=== PATIENT | male | born 1935 | race Caucasian/White ===

== ENCOUNTER 2021-07-13 13:49 | Emergency (ER) | payer OTHER, MEDICARE ==
[2021-07-13] MEDS ORDERED: Sodium Chloride 0.9% 10 ML Syringe FLUSH PRN (14:28)
--- NOTE | 2021-07-13 14:38 | EDM.PDOC ---
ED HPI GENERAL MEDICAL PROBLEM - General Chief Complaint: General Stated Complaint: MEDICAL [facility] Time Seen by Provider: 07/13/21 14:20 Source of Information: Reports: Patient, Old Records, RN History Limitations: Reports: No Limitations - History of Present Illness INITIAL COMMENTS - FREE TEXT/NARRATIVE: 85 yo male [place] patient arrives via EMS from his home where he lives with his for dark, diarrheal stools for about a week. He has not been seen before today. He called the [place] and was told to come to the ER. His does drive. He is on Eliquis. No nausea or fever. Is dizzy and light-headed and SOB with exertion. Hgb at [place] on 06/16/21 was 13.3 Onset: Gradual Onset Date: 07/06/21 Duration: Week(s): (1), Improving Location: Reports: Abdomen Quality: Reports: Other (no marked abdominal pain) Severity: Severe (severity of diarrhea at its worst) Improves with: Reports: Other (time, getting better today) Worsens with: Reports: Other (unknown) Context: Reports: Other (See HPI) Associated Symptoms: Reports: Shortness of Breath ([facility] only). 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 - Related Data Allergies Allergy/AdvReac Type Severity Reaction Status Date / Time No Known Allergies Allergy Verified 07/13/21 14:10 Home Meds: Home Meds Acetaminophen [Tylenol] 325 mg PO Q6HR PRN 07/13/21 [History] Apixaban [Eliquis] 2.5 mg PO BID 07/13/21 [History] Finasteride [Proscar] 5 mg PO DAILY 07/13/21 [History] Furosemide 20 mg PO DAILY 07/13/21 [History] Melatonin 10 mg PO BEDTIME 07/13/21 [History] Metoprolol Succinate [Toprol XL] 25 mg PO BID 07/13/21 [History] Mirtazapine [Remeron] 7.5 mg PO BEDTIME 07/13/21 [History] Prazosin HCl [Prazosin] 5 mg PO BEDTIME 07/13/21 [History] Sertraline HCl [Zoloft] 150 mg PO DAILY 07/13/21 [History] Tamsulosin HCl [Flomax] 0.4 mg PO DAILY 07/13/21 [History] atorvaSTATin Calcium [Atorvastatin Calcium] 10 mg PO BEDTIME 07/13/21 [History] buPROPion HCL [Wellbutrin Xl] 450 mg PO TID 07/13/21 [History] calcitrioL [Calcitriol] 0.25 mcg PO .WEEKLY 07/13/21 [History] Past Medical History HEENT History: Reports: Hard of Hearing, Impaired Vision Cardiovascular History: Reports: Afib, Hypertension, SOB on Exertion, Syncope Respiratory History: Reports: COPD Musculoskeletal History: Reports: Back Pain, Chronic Social & Family History - Tobacco Use Tobacco Use Status *Q: Never Tobacco User Second Hand Smoke Exposure: No - Caffeine Use Caffeine Use: Reports: Coffee - Alcohol Use Days Per Week of Alcohol Use: 1 Number of Drinks Per Day: 1 Total Drinks Per Week: 1 - Recreational Drug Use Recreational Drug Use: No ED ROS GENERAL - Review of Systems Review Of Systems: See Below Constitutional: Reports: No Symptoms HEENT: Reports: No Symptoms Respiratory: Reports: No Symptoms Cardiovascular: Reports: Dyspnea on Exertion Endocrine: Reports: No Symptoms GI/Abdominal: Reports: Diarrhea. Denies: Black Stool, Bloody Stool, Constipation, Hematemesis, Hematochezia, Melena, Nausea : Reports: No Symptoms Musculoskeletal: Reports: No Symptoms Skin: Reports: No Symptoms Neurological: Reports: No Symptoms Psychiatric: Reports: No Symptoms ED EXAM, GENERAL - Physical Exam Exam: See Below Exam Limited By: No Limitations General Appearance: Alert, WD/WN, No Apparent Distress, Obese Eye Exam: Bilateral Eye: Normal Inspection Ears: Normal External Exam, Normal Canal, Hearing Loss, Other (hearing aids bilat) Ear Exam: Bilateral Ear: Auricle Normal Nose: Normal Inspection, No Blood Throat/Mouth: Normal Inspection, Normal Lips, Normal Oropharynx, Normal Voice, No Airway Compromise Head: Atraumatic, Normocephalic Neck: Normal Inspection Respiratory/Chest: No Respiratory Distress, Lungs Clear, Normal Breath Sounds, No Accessory Muscle Use Cardiovascular: Regular Rate, Rhythm, No Edema GI/Abdominal: Normal Bowel Sounds, Soft, Non-Tender, Distended (due to obesity). No: Tender Back Exam: Normal Inspection. No: CVA Tenderness (R), CVA Tenderness (L) Extremities: Normal Inspection, Normal Range of Motion, Non-Tender, No Pedal Edema Neurological: Alert, Oriented, CN II-XII Intact, Normal Cognition, No Motor/Sensory Deficits Psychiatric: Normal Affect, Normal Mood Skin Exam: Warm, Dry, Intact, Normal Color, No Rash Course - Vital Signs Text/Narrative:: Called [facility] @ 1440h, discussed with Dr. Rueda. Last Recorded V/S: Last Vital Signs Temp 36.5 C 07/13/21 13:54 Pulse 98 07/13/21 14:11 Resp 18 07/13/21 14:11 BP 116/52 L 07/13/21 14:11 Pulse Ox 98 07/13/21 14:11 Orthostatic Blood Pressure [ 77/53 Sitting] Orthostatic Blood Pressure [ 86/54 Supine] - Orders/Labs/Meds Orders: Active Orders 24 hr Category Date Time Status Orthostatic Vital Signs [RC] ASDIRECTED Care 07/13/21 15:07 Active UA W/MICROSCOPIC [URIN] Stat Lab 07/13/21 14:28 Ordered Pantoprazole [ProTONIX IV] 80 mg Med 07/13/21 16:15 Active Sodium Chloride 0.9% [Normal Saline] 100 ml IV .BOLUS Sodium Chloride 0.9% [Normal Saline] 1,000 ml Med 07/13/21 16:05 Active IV .BOLUS Sodium Chloride 0.9% [Saline Flush] Med 07/13/21 14:28 Active 10 ml FLUSH ASDIRECTED PRN Saline Lock Insert [OM.PC] Routine Oth 07/13/21 14:28 Ordered Medication Orders Sodium Chloride (Normal Saline) 1,000 mls @ 1,000 mls/hr IV .BOLUS ONE Stop: 07/13/21 17:04 Pantoprazole Sodium 80 mg/ (Sodium Chloride) 100 mls @ 200 mls/hr IV .BOLUS VIRI Sodium Chloride (Sodium Chloride 0.9% 10 Ml Syringe) 10 ml FLUSH ASDIRECTED PRN PRN Reason: Keep Vein Open Last Admin: 07/13/21 15:55 Dose: 10 ml Documented by: ROSS Labs: Laboratory Tests 07/13/21 07/13/21 07/13/21 Range/Units 14:37 14:37 15:12 WBC 11.5 H (4.5-11.0) K/uL RBC 3.21 L (4.30-5.90) M/uL Hgb 9.7 L (12.0-15.0) g/dL Hct 31.5 L (40.0-54.0) % MCV 98 (80-98) fL MCH 30 (27-31) pg MCHC 31 L (32-36) % Plt Count 212 (150-400) K/uL Sodium 138 L (140-148) mmol/L Potassium 4.5 (3.6-5.2) mmol/L Chloride 103 (100-108) mmol/L Carbon Dioxide 28 (21-32) mmol/L Anion Gap 11.5 (5.0-14.0) mmol/L BUN 28 H (7-18) mg/dL Creatinine 1.7 H (0.8-1.3) mg/dL Est Cr Clr Drug Dosing 34.87 mL/min Estimated GFR (MDRD) 38 L (>60) Glucose 81 (74-106) mg/dL Calcium 8.4 L (8.5-10.1) mg/dL Magnesium (1.8-2.4) mg/dL SARS CoV-2 RNA Rapid YADIRA Negative 07/13/21 Range/Units 15:12 WBC (4.5-11.0) K/uL RBC (4.30-5.90) M/uL Hgb (12.0-15.0) g/dL Hct (40.0-54.0) % MCV (80-98) fL MCH (27-31) pg MCHC (32-36) % Plt Count (150-400) K/uL Sodium (140-148) mmol/L Potassium (3.6-5.2) mmol/L Chloride (100-108) mmol/L Carbon Dioxide (21-32) mmol/L Anion Gap (5.0-14.0) mmol/L BUN (7-18) mg/dL Creatinine (0.8-1.3) mg/dL Est Cr Clr Drug Dosing mL/min Estimated GFR (MDRD) (>60) Glucose (74-106) mg/dL Calcium (8.5-10.1) mg/dL Magnesium 1.9 (1.8-2.4) mg/dL SARS CoV-2 RNA Rapid YADIRA Meds: Medications Generic Name Dose Route Start Last Admin Trade Name Freq PRN Reason Stop Dose Admin Sodium Chloride 1,000 mls @ 1,000 mls/hr 07/13/21 16:05 Normal Saline IV 07/13/21 17:04 .BOLUS ONE Pantoprazole Sodium 80 mg/ 100 mls @ 200 mls/hr 07/13/21 16:15 Sodium Chloride IV .BOLUS VIRI Sodium Chloride 10 ml 07/13/21 14:28 07/13/21 15:55 Sodium Chloride 0.9% 10 Ml Syringe FLUSH 10 ml ASDIRECTED PRN Administration Keep Vein Open Discontinued Medications Generic Name Dose Route Start Last Admin Trade Name Freq PRN Reason Stop Dose Admin Famotidine 20 mg 07/13/21 16:06 Famotidine 20 Mg/2 Ml Sdv IVPUSH 07/13/21 16:07 ONETIME ONE Sucralfate 1 gm 07/13/21 16:06 Sucralfate 1 Gm Tab PO 07/13/21 16:07 ONETIME ONE Departure - Departure Time of Disposition: 17:20 Disposition: DC/Tfer to Acute Hospital 02 Condition: Fair Clinical Impression: Orthostatic hypotension GI bleed Qualifiers: GI bleed type/associated pathology: melena Qualified Code(s): K92.1 - Melena Anemia Qualifiers: Anemia type: unspecified type Qualified Code(s): D64.9 - Anemia, unspecified - Discharge Information *PRESCRIPTION DRUG MONITORING PROGRAM REVIEWED*: Not Applicable *COPY OF PRESCRIPTION DRUG MONITORING REPORT IN PATIENT KAYLA: Not Applicable Referrals: PCP,None [Primary Care Provider] - Forms: ED Department Discharge Sepsis Event Note (ED) - Focused Exam Vital Signs: Vital Signs Temp Pulse Resp BP Pulse Ox 07/13/21 14:11 98 18 116/52 L 98 07/13/21 13:54 36.5 C 87 20 114/72 99 - My Orders Last 24 Hours: My Active Orders 07/13/21 14:28 UA W/MICROSCOPIC [URIN] Stat Sodium Chloride 0.9% [Saline Flush] 10 ml FLUSH ASDIRECTED PRN Saline Lock Insert [OM.PC] Routine 07/13/21 15:07 Orthostatic Vital Signs [RC] ASDIRECTED 07/13/21 16:05 Sodium Chloride 0.9% [Normal Saline] 1,000 ml IV .BOLUS 07/13/21 16:15 Pantoprazole [ProTONIX IV] 80 mg Sodium Chloride 0.9% [Normal Saline] 100 ml IV .BOLUS - Assessment/Plan Last 24 Hours: My Active Orders 07/13/21 14:28 UA W/MICROSCOPIC [URIN] Stat Sodium Chloride 0.9% [Saline Flush] 10 ml FLUSH ASDIRECTED PRN Saline Lock Insert [OM.PC] Routine 07/13/21 15:07 Orthostatic Vital Signs [RC] ASDIRECTED 07/13/21 16:05 Sodium Chloride 0.9% [Normal Saline] 1,000 ml IV .BOLUS 07/13/21 16:15 Pantoprazole [ProTONIX IV] 80 mg Sodium Chloride 0.9% [Normal Saline] 100 ml IV .BOLUS
[2021-07-13] MEDS ORDERED: Sodium Chloride 0.9% 1,000 ML IV ONE (16:05)
[2021-07-13] MEDS ORDERED: Sucralfate 1 GM Tab PO ONE (16:06)
[2021-07-13] MEDS ORDERED: Famotidine 20 MG/2 ML SDV IVPUSH ONE (16:06)
[2021-07-13] MEDS ORDERED: Pantoprazole 80 MG in Sodium Chloride 0.9% 100 ML IV SCH (16:15)
[2021-07-13] MEDS ORDERED: Pantoprazole 40 MG Vial IV ONE (17:30)
== END 2021-07-13 18:30 ==
LOC: JP.ED 13:49
DX: K92.1 Melena (principal); D64.9 Anemia, unspecified; I95.1 Orthostatic hypotension; I48.91 Unspecified atrial fibrillation; I10 Essential (primary) hypertension; J44.9 Chronic obstructive pulmonary disease, unspecified; Z79.01 Long term (current) use of anticoagulants; Z79.899 Other long term (current) drug therapy; Z20.822 Contact with and (suspected) exposure to COVID-19
CPT/HCPCS: 36415; 80048; 82272; 83735; 85027; 87635; 96374; 96375; 99285; A9270; C9113; J3490; J7030; U0002